=== PATIENT | female | born 1995 | race Two or more races ===

== ENCOUNTER 2023-04-22 09:56 | Outpatient (CLI) | payer OTHER ==
--- NOTE | 2023-04-22 16:02 | Ultrasound Report ---
PROCEDURE: Abdomen Limited INDICATIONS: TRANSAMINITIS TECHNIQUE: Real-time focused scanning was performed of the abdomen, with image documentation. COMPARISONS: None. FINDINGS: Liver: Liver is normal in size and homogeneous in echotexture. Gallbladder: There are multiple mobile gallstones in the gallbladder. No gallbladder wall thickening or pain on examination. Biliary ducts: Intrahepatic bile ducts are non-dilated. Extrahepatic bile duct caliber measures 3.0 mm. Normal is 6-7 mm or less in diameter, or 10 mm or less post-cholecystectomy. Pancreas: Not well visualized due to overlying bowel gas. Right kidney: Normal in size and echotexture. Right kidney measures 10.5 cm long. No hydronephrosis or nephrolithiasis. No solid masses. No complex renal cystic lesions which require follow-up. Aorta: Visualized aorta is normal in caliber at less than 3 cm. IVC: Intrahepatic inferior vena cava is patent. Miscellaneous: No free abdominal fluid. IMPRESSION: Cholelithiasis. Reviewed by: Earl Mak MD on 04/22/2023 4:00 PM PDT Approved by: Earl Mak MD on 04/22/2023 4:00 PM PDT Station ID: [id number]
== END 2023-04-22 09:57 | disposition home or self-care (01) ==
LOC: DI 09:56
PROVIDERS: ATTEND Nurse Practitioner Family
DX: R74.01 Elevation of levels of liver transaminase levels (principal); K80.20 Calculus of gallbladder without cholecystitis without obstruction